=== PATIENT | male | born 1995 | race African-American/Black ===

== ENCOUNTER 2019-12-04 17:39 | Emergency (ER) | payer BC, SELFPAY ==
[2019-12-04 17:56] VITALS: BP 168/96; PULSE 113; RESP 16; TEMP 37.8; O2SAT 98
--- NOTE | 2019-12-04 18:44 | ED.EAR ---
HPI - Ear Problem General Chief complaint: Ear Stated complaint: fluid in ear, jaw problems Time Seen by Provider: 12/04/19 18:44 Source: patient Mode of arrival: ambulatory Limitations: no limitations History of Present Illness HPI Narrative: Jorge L Quiñones is a 23 yo male with PMH of bipolar disorder who comes to express care for R ear pain, jaw pain x 3 days. Is worsening Related Data Home Medications Medication Instructions Recorded Confirmed aripiprazole 10 mg PO DAILY 12/04/19 12/04/19 propranolol 10 mg PO DAILY 12/04/19 12/04/19 venlafaxine 150 mg PO DAILY 12/04/19 12/04/19 Allergies Allergy/AdvReac Type Severity Reaction Status Date / Time acetaminophen [From Vicodin] AdvReac Mild Other Verified 12/04/19 18:57 hydrocodone [From Vicodin] AdvReac Mild Verified 12/04/19 18:57 Review of Systems Review of Systems: Narrative: CONSTITUTIONAL: Denies fever, chills, sweats. EYES: Denies visual changes, redness, discharge. ENT: Denies rhinorrhea, congestion, sore throat, right otalgia. Right jaw pain CARDIOVASCULAR: Denies chest pain, palpitations, edema. RESPIRATORY: Denies dyspnea, wheezing, cough GASTROINTESTINAL: Denies abdominal pain, nausea, vomiting, diarrhea. GENITOURINARY: Denies dysuria, hematuria, abnormal discharge SKIN: Denies rash or itching. NEUROLOGIC: Denies numbness, or focal weakness. PSYCHIATRIC: Denies anxiety or depression. [facility] Family History Family History (Updated 12/04/19 @ 18:56 by Jennifer Hernández CNP) Other Diabetes mellitus Social History Social History (Updated 12/04/19 @ 18:57 by Jennifer Hernández CNP) Smoking status: Never smoker Alcohol intake: current Alcohol use details: rarely Comments At time of signature, I agree with nursing past medical, surgical, social and family history. There is no relevant family history pertinent to the presenting complaint. Blood pressure elevated on visit may be due to today's condition but should follow-up primary care physician Exam Narrative: Exam Narrative: GENERAL: This is a well-nourished, well-developed patient, in mild distress. HEAD: normocephalic, atraumatic. EYES: Sclera clear/white. Vision is grossly intact. EARS: External ears edema on right, canal, erythema and fluid behind TM on right. hearing grossly intact. NOSE: External nose normal without nasal discharge, nares without redness, no rhinorrhea. THROAT: Mucous membranes moist, pain on right when opens mouth; NECK: Neck supple,right submandibular tenderness, area is tender on palpation CARDIOVASCULAR: Regular rate and rhythm without murmurs, gallops, or rubs. RESPIRATORY: Clear to auscultation. Breath sounds equal bilaterally. No wheezes, rales, or rhonchi. GASTROINTESTINAL: Abdomen soft, SKIN: warm, intact with no suspicious lesions or rash, good texture and turgor. NEURO: awake, alert, and oriented to person, place and time. There were no obvious focal neurologic abnormalities. Steady gait EXTREMITIES: Normal range of motion. BACK: Nontender without deformity Course Course Emergency Course: Started on eardrops as well as oral systemic antibiotic for inflammation of the tragus and ear canal Vital Signs Vital signs: Vital Signs Temperature 100.0 F H 12/04/19 17:56 Pulse Rate 113 H 12/04/19 17:56 Respiratory Rate 16 12/04/19 17:56 Blood Pressure 168/96 H 12/04/19 17:56 Pulse Oximetry 98 12/04/19 17:56 Temperature 100.0 F H 12/04/19 17:56 Pulse Rate 113 H 12/04/19 17:56 Respiratory Rate 16 12/04/19 17:56 Blood Pressure 168/96 H 12/04/19 17:56 Pulse Oximetry 98 12/04/19 17:56 Medical Decision Making Differential Diagnosis Differential Diagnosis: Otitis versus otitis externa versus submandibular tenderness versus dental abscess Vital Signs Vital Signs: Vital Signs Temperature 100.0 F H 12/04/19 17:56 Pulse Rate 113 H 12/04/19 17:56 Respiratory Rate 16 12/04/19 17:56 Blood Pressure 168/96 H 12/04/19 17:5
== END 2019-12-04 19:09 | disposition home or self-care (01) ==
PROVIDERS: Emergency Provider Nurse Practitioner
DX: R59.9 Enlarged lymph nodes, unspecified (principal); H65.01 Acute serous otitis media, right ear; R50.81 Fever presenting with conditions classified elsewhere
CPT/HCPCS: 99213; G0463